=== PATIENT | male | born 1940 | race Caucasian/White ===

== ENCOUNTER 2017-08-06 19:15 | Emergency (ER) | payer BC, MEDICARE ==
[~2017-08-06] VITALS: Ht 180.3 cm; Wt 67.6 kg
[~2017-08-06 19:15] MED LIST: AMARYL2 MG PO; DAILY MULTIPLE1 T11 PO; GARLIC500 MG PO; GLUCOSAMINE CH1 EAC2 PO; IRON TABLETS325 MG PO; MEDROL 4MG. DOSE4 MG PO; METFORMIN ER500 MG PO; TRIAMCINOLONE0.025% TP; VISTARIL25 M1 PO
--- NOTE | 2017-08-06 19:46 | Urgent Treatment Center Report ---
History of Present Issue Date/Time Seen by Provider 08/06/171936 Visit Reason Pt arrived:Walked Presenting Problem:PT C/O RASH ALL OVER, CHEST CONGESTION, AND FEVERS FOR A FEW DAYS Location if Accident: Onset of symptoms date/time:/ or onset unknown for:MEDICAL HX UNKNOWN Have you (or family members/close friends) recently traveled outside the [place]? N If Yes, where/when: Have you had exposure to infectious disease within the past month? TB? Other? Specify: Patient state that his family doctor recently started him on Cefdinir for sorethroat States that he began having fever prior and sore throat with drainage States that after he started medication he began to have a rash all over his body and continued to take his medication and today he came in to be seen because it was itching and getting worse ALLERGIES Coded Allergies: diphenhydramine (From BENADRYL) (Mild, 08/06/17) prednisone (Mild, 08/06/17) Home Medications Active Scripts Hydroxyzine Pamoate (Vistaril 25MG CAP) 25 MG PO Q6HP PRN itching #15 CAP Prov: 03/08/16 Reported Medications METFORMIN HCL (Metformin HCl ER) 1,000 MG PO DAILY #180 Glimepiride (Amaryl) 2 MG PO DAILY #90 Triamcinolone Acetonide 1 DON TP BIDP PRN ITCHING #15 Methylprednisolone (Medrol Dose Milton) 4 MG PO UD #21 MULTIVITAMIN (Daily Multiple Vitamin) 1 TAB PO DAILY Ferrous Sulfate (Iron Tablet) 325 MG PO DAILY Glucosa Velasquez 2KCL/Chondroitin Velasquez (Glucosamine Chondroitin Caplet) 1 EACH PO DAILY Garlic 500 MG PO DAILY History Medical History General CAD? No Angina: No [place]: No Hypertension? No Hyperlipidemia? No CHF? No DVT? No PE? No COPD? No Asthma? No Anemia? No GERD? No Gastric ulcers? No GI Bleed? No Hernia? No Thyroid Problems? No Hypothyroidism? No CVA? No Seizures? No Diabetes? Yes Insulin Dependent: No Insulin Pump: No Home FSBS? Yes Renal Insuffiency? No UTI? No Stones? No BPH? No GB Disease: No Nephritic Syndrome? No Asplenia? No Hepatitis? No Sickle Cell Disease? No Arthritis? No Migraines? No Cataracts? No Glaucoma? No MRSA? No HIV? No TB? No Anxiety? No Depression? No Cancer? No More? No Immunization HX DT/Tetanus > 10 Years Ago Surgical Hx Previous Surgery?N Social History Smoking Hx Smoker: Never Smoker Tobacco: No Alcohol Alcohol: Yes Review of Systems All Other Systems Reviewed and Negative Skin rash Physical Exam Vital Signs Vital Signs Date Time Temp Pulse Resp B/P Pulse O2 O2 Flow FiO2 Ox Delivery Rate 08/06 1928 97.9 88 18 138/75 97 General Appearance normal appearance, WD/WN, no apparent distress Respiratory Status Yes: trachea midline, chest symmetrical, non tender chest. No: respiratory distress. 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 No Results/Orders Current Medication Orders Sig/Ronnie Start time Last Medication Dose Route Stop Time Status Admin Hydroxyzine Pamoate 0 .STK-MED ONE 08/06 2003 DCr PO Famotidine 0 .STK-MED ONE 08/06 2002 DC .ROUTE Famotidine 20 MG ONCE ONE 08/06 2000 DC 08/06 PO 08/06 Hydroxyzine Pamoate 25 MG ONCE ONE 08/06 2000 DCr 08/06 PO 08/06 Orders Procedure Date/time Status CHEST(2 VIEWS-NOT PORTABLE) 08/06 2009 Active XRAY/CT/US XRAY/CT/US XR interpretation by reviewed by me Xray Results no infiltrates Progress [facility] Progress Notes 1 Comment Discussed with Pharmacist litigation services manager Phi Diallo about the Use of Visteril due to patient reporting allergic to Benadryl however after talking with jose alberto he states that he is not allergic to benadryl that he gets confused from benadryl Patient also advised that he was on antibiotic for sorethroat an was no longer having sorethroat discussed with pharmacy that due to patients history of being allergic to multiple antibiotics that patient needed to stop taking Cefdinir and follow up with family doctor on Tuesday to be restarted on different antibiotic if warrented due to patient unsure of why he was on the antibiotic [facility] Progress Notes 2 Date 08/06/17 Time 2041 Comment Patient rash improved patient verbalized understanding to stop Cefdinir patient ready for discharge home Departure Departure Time of Disposition 2029 Disposition DC Home or Self Care(routine) Clinical Impression Primary Impression: Allergic reaction Qualifiers: Encounter type: initial encounter Qualified Code: T78.40XA - Allergy, unspecified, initial encounter Condition STABLE Referrals Iglesia Rabago MD (Family): 2 Days-Call Office Patient Instructions DI for General Allergic Reactions Additional Instructions Follow up with family doctor on Tuesday and advise him that you had a reaction to antibiotic and that it was stopped and changes to Azithromycin If rash continues go straight to the ER Return if needed Discharge Counseling Counseled pt/family regarding diagnosis, test results, medications/RX, home care Prescriptions Current Visit Scripts Azithromycin (Zithromycin (Z-MILTON) 250MG Tab) 250 MG PO DAILY #6 TAB TAKE TWO (2) TABLETS ON DAY 1, THEN ONE (1) TABLET DAY #2 THRU #5 Hydroxyzine Pamoate (Vistaril 25MG CAP) 25 MG PO Q6HP PRN allergic reaction #15 CAP at 204
--- NOTE | 2017-08-06 19:46 | Urgent Treatment Center Report ---
History of Present Issue Date/Time Seen by Provider 08/06/171936 Visit Reason Pt arrived:Walked Presenting Problem:PT C/O RASH ALL OVER, CHEST CONGESTION, AND FEVERS FOR A FEW DAYS Location if Accident: Onset of symptoms date/time:/ or onset unknown for:MEDICAL HX UNKNOWN Have you (or family members/close friends) recently traveled outside the [place]? N If Yes, where/when: Have you had exposure to infectious disease within the past month? TB? Other? Specify: Patient state that his family doctor recently started him on Cefdinir for sorethroat States that he began having fever prior and sore throat with drainage States that after he started medication he began to have a rash all over his body and continued to take his medication and today he came in to be seen because it was itching and getting worse ALLERGIES Coded Allergies: diphenhydramine (From BENADRYL) (Mild, 08/06/17) prednisone (Mild, 08/06/17) Home Medications Active Scripts Hydroxyzine Pamoate (Vistaril 25MG CAP) 25 MG PO Q6HP PRN itching #15 CAP Prov: 03/08/16 Reported Medications METFORMIN HCL (Metformin HCl ER) 1,000 MG PO DAILY #180 Glimepiride (Amaryl) 2 MG PO DAILY #90 Triamcinolone Acetonide 1 DON TP BIDP PRN ITCHING #15 Methylprednisolone (Medrol Dose [place]) 4 MG PO UD #21 MULTIVITAMIN (Daily Multiple Vitamin) 1 TAB PO DAILY Ferrous Sulfate (Iron Tablet) 325 MG PO DAILY Glucosa Velasquez 2KCL/Chondroitin Velasquez (Glucosamine Chondroitin Caplet) 1 EACH PO DAILY Garlic 500 MG PO DAILY History Medical History General CAD? No Angina: No [place]: No Hypertension? No Hyperlipidemia? No CHF? No DVT? No PE? No COPD? No Asthma? No Anemia? No GERD? No Gastric ulcers? No GI Bleed? No Hernia? No Thyroid Problems? No Hypothyroidism? No CVA? No Seizures? No Diabetes? Yes Insulin Dependent: No Insulin Pump: No Home FSBS? Yes Renal Insuffiency? No UTI? No Stones? No BPH? No GB Disease: No Nephritic Syndrome? No Asplenia? No Hepatitis? No Sickle Cell Disease? No Arthritis? No Migraines? No Cataracts? No Glaucoma? No MRSA? No HIV? No TB? No Anxiety? No Depression? No Cancer? No More? No Immunization HX DT/Tetanus > 10 Years Ago Surgical Hx Previous Surgery?N Social History Smoking Hx Smoker: Never Smoker Tobacco: No Alcohol Alcohol: Yes Review of Systems All Other Systems Reviewed and Negative Skin rash Physical Exam Vital Signs Vital Signs Date Time Temp Pulse Resp B/P Pulse O2 O2 Flow FiO2 Ox Delivery Rate 08/06 1928 97.9 88 18 138/75 97 General Appearance normal appearance, WD/WN, no apparent distress Respiratory Status Yes: trachea midline, chest symmetrical, non tender chest. No: respiratory distress. 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 No Results/Orders Current Medication Orders Sig/Ronnie Start time Last Medication Dose Route Stop Time Status Admin Hydroxyzine Pamoate 0 .STK-MED ONE 08/06 2003 DCr PO Famotidine 0 .STK-MED ONE 08/06 2002 DC .ROUTE Famotidine 20 MG ONCE ONE 08/06 2000 DC 08/06 PO 08/06 Hydroxyzine Pamoate 25 MG ONCE ONE 08/06 2000 DCr 08/06 PO 08/06 Orders Procedure Date/time Status CHEST(2 VIEWS-NOT PORTABLE) 08/06 2009 Active XRAY/CT/US XRAY/CT/US XR interpretation by reviewed by me Xray Results no infiltrates Progress [facility] Progress Notes 1 Comment Discussed with Pharmacist special education tutor Phi Diallo about the Use of Visteril due to patient reporting allergic to Benadryl however after talking with jose alberto he states that he is not allergic to benadryl that he gets confused from benadryl Patient also advised that he was on antibiotic for sorethroat an was no longer having sorethroat discussed with pharmacy that due to patients history of being allergic to multiple antibiotics that patient needed to stop taking Cefdinir and follow up with family doctor on Tuesday to be restarted on different antibiotic if warrented due to patient unsure of why he was on the antibiotic [facility] Progress Notes 2 Date 08/06/17 Time 2041 Comment Patient rash improved patient verbalized understanding to stop Cefdinir patient ready for discharge home Departure Departure Time of Disposition 2029 Disposition DC Home or Self Care(routine) Clinical Impression Primary Impression: Allergic reaction Qualifiers: Encounter type: initial encounter Qualified Code: T78.40XA - Allergy, unspecified, initial encounter Condition STABLE Referrals Iglesia Rabago MD (Family): 2 Days-Call Office Patient Instructions DI for General Allergic Reactions Additional Instructions Follow up with family doctor on Tuesday and advise him that you had a reaction to antibiotic and that it was stopped and changes to Azithromycin If rash continues go straight to the ER Return if needed Discharge Counseling Counseled pt/family regarding diagnosis, test results, medications/RX, home care Prescriptions Current Visit Scripts Azithromycin (Zithromycin (Z-MILTON) 250MG Tab) 250 MG PO DAILY #6 TAB TAKE TWO (2) TABLETS ON DAY 1, THEN ONE (1) TABLET DAY #2 THRU #5 Hydroxyzine Pamoate (Vistaril 25MG CAP) 25 MG PO Q6HP PRN allergic reaction #15 CAP at 204
[2017-08-06] MEDS ORDERED: ZITHROMAX Z PA250 MG PO (20:42)
[2017-08-06] MEDS ORDERED: VISTARIL25 M1 PO (20:42)
[2017-08-06 20:48] VITALS: BP 138/75
--- NOTE | 2017-08-07 07:59 | RADIOLOGY REPORT PS360 ---
CHEST(2 VIEWS-NOT PORTABLE) HISTORY: Rashes on chest and arms CHEST ABNORMALITY ORDERING PHYSICIAN: SHEILA DRISCOLL APRN PATIENT AGE: 76 years COMPARISON: None available FINDINGS: The cardiomediastinal silhouette and pulmonary vascularity are within normal limits. The lungs are clear without infiltrates, suspicious nodules, or pleural effusions. No acute bony abnormalities. IMPRESSION: Negative chest, no acute finding
== END 2017-08-06 21:00 | disposition home or self-care (01) ==
LOC: UTC 19:15
DX: L27.0 Generalized skin eruption due to drugs and medicaments taken internally (principal); T36.1X5A Adverse effect of cephalosporins and other beta-lactam antibiotics, initial encounter; E11.9 Type 2 diabetes mellitus without complications; Z79.84 Long term (current) use of oral hypoglycemic drugs; Z79.899 Other long term (current) drug therapy

== ENCOUNTER → 2017-08-24 | Outpatient (CLI) | payer BC, MEDICARE ==
[~2017-08-24] MED LIST changes: +ZITHROMAX Z PA250 MG PO
--- NOTE | 2017-08-24 14:13 | RADIOLOGY REPORT PS360 ---
EXAM: THORACIC SPINE-3V SWIMMERS HISTORY: UPPER BACK PAIN COMPARISON: None FINDINGS: No acute fracture or dislocation is evident. There is mild multilevel degenerative disc disease with minimal thoracic curvature convex right. No lytic or blastic change. IMPRESSION: Thoracic spondylosis, no acute finding
== END ==
LOC: RAD 11:19
DX: M54.6 Pain in thoracic spine (principal)